=== PATIENT | female | born 1985 | race Caucasian/White ===

== ENCOUNTER 2017-05-25 15:59 | Outpatient (CLI) | payer OTHER ==
[~2017-05-25] VITALS: Ht 170.2 cm; Wt 65.5 kg
[2017-05-25 17:02] VITALS: BP 117/75
[2017-05-25 17:17] LABS: BLOOD UREA NITROGEN 9 mg/dL (7-18)
[2017-05-25] MEDS ORDERED: FOLI0.8C PO (17:19)
[2017-05-25] MEDS ORDERED: CHOL400C PO (17:20)
[2017-05-25] MEDS ORDERED: MAGN400T36 PO (17:20)
[2017-05-25 17:23] LABS: ASPARTATE AMINO TRANSFERASE 22 U/L (15-37)
[2017-05-25] MEDS ORDERED: ASPI-515 PO (17:26)
== END 2017-05-25 17:45 | disposition home or self-care (01) ==
LOC: LDOP 15:59
PROVIDERS: ATTEND Specialist
DX: O26.893 Other specified pregnancy related conditions, third trimester (principal); R03.0 Elevated blood-pressure reading, without diagnosis of hypertension; Z3A.36 36 weeks gestation of pregnancy
CPT/HCPCS: 36415; 59025; 80053; 81001; 82248; 82570; 84156; 84550; 85025; 87086; 99201; G0463

== ENCOUNTER 2017-06-26 06:45 | Inpatient (IN) | payer OTHER ==
[~2017-06-26] VITALS: Ht 170.2 cm; Wt 66.5 kg
[~2017-06-26 06:45] MED LIST: ASPI-515 PO; CHOL400C PO; FOLI0.8C PO; MAGN400T36 PO
[2017-06-26 07:03] VITALS: BP 117/68
[2017-06-26] MEDS ORDERED: D5%-LACTATED RINGERS 1,000 ML IV SCH (09:25)
[2017-06-26] MEDS ORDERED: OXYTOCIN 30U/ 0.9% NaCL 500ML 500 ML IV ONE (09:25)
[2017-06-26] MEDS ORDERED: SODIUM CITRATE/CITRIC ACID 30 ML UDC PO PRN (09:30)
[2017-06-26] MEDS ORDERED: METOCLOPRAMIDE 5 MG/ML, 2ML IVPush PRN (09:30)
[2017-06-26] MEDS ORDERED: ONDANSETRON 2MG/ML, 2ML IVPush PRN (09:30)
[2017-06-26] MEDS: LACTATED RINGERS 1,000 ML IV SCH ×3 (09:30→15:06)
[2017-06-26] MEDS ORDERED: FENTANYL PF 100 MCG/2ML IV PRN (09:30)
[2017-06-26] MEDS ORDERED: FENTANYL PF 100 MCG/2ML IVPush PRN (09:30)
[2017-06-26 10:14] LABS: HEMATOCRIT 38.3 % (34.6-47.8); HEMOGLOBIN 12.3 g/dL (11.7-16.4); WHITE BLOOD COUNT 9.1 x10^3/uL (3.4-10)
[2017-06-26] MEDS ORDERED: NEWBORN KIT ONE (10:47)
[2017-06-26] MEDS ORDERED: OXYTOCIN 30U/ 0.9% NaCL 500ML 500 ML ONE (10:48)
[2017-06-26] MEDS ORDERED: LACTATED RINGERS 1,000 ML IV SCH (13:01)
[2017-06-26] MEDS ORDERED: FENTANYL/BUPIV./NS/PF 250 ML EPIDCONT SCH (13:01)
[2017-06-26] MEDS ORDERED: BUPIVACAINE/PF 0.25% ONE (13:03)
[2017-06-26] MEDS ORDERED: FENTANYL/BUPIV./NS/PF 250 ML EPIDCONT ONE ×2 (13:03→13:07)
[2017-06-26] MEDS ORDERED: BUPIVACAINE 0.25% ONE (13:07)
[2017-06-26] MEDS ORDERED: NALOXONE 0.4 MG/ML, 1ML IVPush PRN (13:30)
[2017-06-26] MEDS ORDERED: EPHEDRINE 50 MG/ML, 1ML IVPush PRN (13:30)
[2017-06-26] MEDS ORDERED: LACTATED RINGERS 1,000 ML IVBOLUS PRN (13:30)
[2017-06-26] MEDS ORDERED: OXYTOCIN 30U/ 0.9% NaCL 500ML 500 ML IV PRN (15:24)
[2017-06-26] MEDS ORDERED: ACETAMINOPHEN 325 MG TABLET ONE (20:13)
[2017-06-26] MEDS ORDERED: ACETAMINOPHEN 325 MG TABLET PO ONE (20:30)
[2017-06-26] MEDS ORDERED: CALCIUM CARBONATE 500 MG TAB.CHEW PO PRN (23:30)
[2017-06-26] MEDS ORDERED: MEASLES,MUMPS&RUBELLA VACC/PF 0.5 ML SQ PRN (23:30)
[2017-06-26] MEDS ORDERED: HYDROcodone/APAP 5/325 TABLET PO PRN ×2 (23:30)
[2017-06-26] MEDS ORDERED: DIPH,PERTUSS(ACELL),TET VAC/PF NC IM-VACC PRN (23:30)
[2017-06-26] MEDS ORDERED: GENTAMICIN PER PHARMACY MC PRN (23:30)
[2017-06-26] MEDS ORDERED: MISOPROSTOL 200 MCG TABLET PR PRN (23:30)
[2017-06-26] MEDS ORDERED: ONDANSETRON 2MG/ML, 2ML IV PRN (23:30)
[2017-06-26] MEDS: AMPICILLIN 2 GM in SODIUM CHLORIDE 0.9% 100 ML IV SCH (23:35)
[2017-06-26] MEDS ORDERED: GENTAMICIN 320 MG in SODIUM CHLORIDE 0.9% 100 ML IV SCH (23:45)
[2017-06-26] MEDS ORDERED: PHARMACOKINETIC CONSULTATION MC ONE (23:45)
[2017-06-26] MEDS ORDERED: PHARMACOKINETIC MONITORING MC PRN (23:45)
[2017-06-27] MEDS ORDERED: OXYTOCIN 30U/ 0.9% NaCL 500ML 500 ML ONE (01:38)
[2017-06-27 01:40] VITALS: BP 116/75
[2017-06-27] MEDS: OXYTOCIN 30U/ 0.9% NaCL 500ML 500 ML IV SCH ×3 (01:51→19:22)
[2017-06-27 05:00] VITALS: BP 117/78
[2017-06-27] MEDS: IBUPROFEN 600 MG TABLET PO PRN ×2 (05:09→12:07)
[2017-06-27] MEDS: AMPICILLIN 2 GM in SODIUM CHLORIDE 0.9% 100 ML IV SCH ×2 (05:40→11:54)
[2017-06-27 07:26] LABS: HEMATOCRIT 31.4 % (34.6-47.8); HEMOGLOBIN 10.1 g/dL (11.7-16.4); WHITE BLOOD COUNT 12.9 x10^3/uL (3.4-10)
[2017-06-27 08:45] VITALS: BP 114/72
[2017-06-27] MEDS: PRENATAL VIT/IRON/FA 1 EACH TABLET PO SCH (12:07)
[2017-06-27] MEDS: DOCUSATE 100 MG CAPSULE PO PRN (12:07)
[2017-06-27 15:20] VITALS: BP 101/62
[2017-06-27] MEDS: AMOXICILLIN/CLAV 500-125MG TABLET PO SCH (19:54)
[2017-06-27 20:00] VITALS: BP 117/76
[2017-06-27] MEDS: SODIUM CHLORIDE FLUSH 10ML SYR IVF SCH (21:00)
[2017-06-28 03:20] VITALS: BP 110/59
[2017-06-28] MEDS: AMOXICILLIN/CLAV 500-125MG TABLET PO SCH ×2 (03:26→11:52)
[2017-06-28] MEDS: DOCUSATE 100 MG CAPSULE PO PRN ×2 (03:27→09:44)
[2017-06-28] MEDS: IBUPROFEN 600 MG TABLET PO PRN ×3 (03:27→16:15)
[2017-06-28] MEDS: OXYTOCIN 30U/ 0.9% NaCL 500ML 500 ML IV SCH (05:22)
[2017-06-28 08:00] VITALS: BP 101/67
[2017-06-28] MEDS: SODIUM CHLORIDE FLUSH 10ML SYR IVF SCH (09:44)
[2017-06-28] MEDS: PRENATAL VIT/IRON/FA 1 EACH TABLET PO SCH (09:44)
[2017-06-28] MEDS ORDERED: IBUP-1223 PO (10:04)
[2017-06-28] MEDS ORDERED: DOCU-131 PO (10:06)
[2017-06-28] MEDS ORDERED: HYDR30CR69 RC (10:07)
[2017-06-28] MEDS ORDERED: AMOX1TAB61 PO (10:08)
== END 2017-06-28 19:15 | disposition home or self-care (01) | DRG 775 ==
LOC: LDOP 06:45 → LDIP 10:06 → 2NW 06-27 05:23 → EDSTATUS 06-29 06:44
PROVIDERS: ADMIT Specialist; ATTEND Specialist
PROC: 10E0XZZ Delivery of Products of Conception, External Approach (ICD-10-PCS; principal; 2017-06-26)
PROC: 0KQM0ZZ Repair Perineum Muscle, Open Approach (ICD-10-PCS; 2017-06-26)
PROC: 3E0S3CZ (ICD-10-PCS; 2017-06-26)
PROC: 00HU33Z Insertion of Infusion Device into Spinal Canal, Percutaneous Approach (ICD-10-PCS; 2017-06-26)
DX: O69.81X0 Labor and delivery complicated by cord around neck, without compression, not applicable or unspecified (principal); O77.0 Labor and delivery complicated by meconium in amniotic fluid; O41.1290 Chorioamnionitis, unspecified trimester, not applicable or unspecified; Z37.0 Single live birth; O70.1 Second degree perineal laceration during delivery; Z3A.39 39 weeks gestation of pregnancy; Z23 Encounter for immunization
CPT/HCPCS: 36415; 82803; 85025; 86850; 86900; J0290; J3490; J1580; J2590; J3010; J7120; J7121